=== PATIENT | female | born 1975 | race Caucasian/White ===

== ENCOUNTER 2016-12-20 04:23 | Emergency (ER) | payer OTHER ==
[~2016-12-20] VITALS: Ht 167.6 cm; Wt 84.4 kg
[~2016-12-20 04:23] MED LIST: ECO81 PO; PRI20 PO
[2016-12-20 05:35] LABS: BASOPHIL % 0.6 % (0-2); PLATELET COUNT 268 x10^3mcL (130-400); RED CELL DISTRIBUTION WIDTH 13.7 % (11.5-14.5)
[2016-12-20 05:39] LABS: UA SPECIFIC GRAVITY 1.015 (1.005-1.035); microscopic required? YES; urine erythrocyte 1+ (NEGATIVE)
[2016-12-20 05:49] LABS: CALCIUM 8.9 mg/dL (8.5-10.1); CARBON DIOXIDE 28.7 mmol/L (21-32); CHLORIDE SERUM 102 mmol/L (98-107); CREATININE SERUM 0.5 mg/dL (0.6-1.0); GFR1 > 60 mL/min; GLUCOSE SERUM 91 mg/dL (74-106); POTASSIUM SERUM 3.9 mmol/L (3.5-5.1); SODIUM SERUM 139 mmol/L (136-145)
[2016-12-20 05:54] LABS: ALBUMIN 3.7 g/dL (3.4-5.0); ALKALINE PHOSPHATASE 105 U/L (46-116); ALT/SGPT 18 U/L (14-59); AST/SGOT 17 U/L (15-37); BILIRUBIN TOTAL 0.24 mg/dL (0.20-1.00); LIPASE 133 IU/L (73-393); TOTAL PROTEIN, SERUM 7.2 g/dL (6.4-8.2)
[2016-12-20 10:15] VITALS: BP 100/64
== END 2016-12-20 09:00 | disposition home or self-care (01) ==
LOC: ED 04:23
PROVIDERS: Emergency Medicine
DX: N39.0 Urinary tract infection, site not specified (principal); M19.90 Unspecified osteoarthritis, unspecified site; Z90.710 Acquired absence of both cervix and uterus
CPT/HCPCS: J0696; J2270; J2405; J3010; J3490; J7030; Q9967

== ENCOUNTER 2016-12-28 06:48 | Emergency (ER) | payer OTHER ==
[2016-12-28 07:47] VITALS: BP 112/70
[2016-12-28 08:21] LABS: UA SPECIFIC GRAVITY 1.015 (1.005-1.035); microscopic required? YES; urine erythrocyte 1+ (NEGATIVE)
== END 2016-12-28 07:47 | disposition home or self-care (01) ==
LOC: ED 06:48
PROVIDERS: Emergency Medicine
DX: N39.0 Urinary tract infection, site not specified (principal); Z88.5 Allergy status to narcotic agent
CPT/HCPCS: J0696; Q0162

== ENCOUNTER 2016-12-31 18:24 | Emergency (ER) | payer OTHER ==
[~2016-12-31] VITALS: Ht 167.6 cm; Wt 84.5 kg
[2016-12-31 21:05] LABS: BASOPHIL % 0.5 % (0-2); PLATELET COUNT 290 x10^3mcL (130-400); RED CELL DISTRIBUTION WIDTH 13.7 % (11.5-14.5)
[2016-12-31 21:23] LABS: CALCIUM 8.9 mg/dL (8.5-10.1); CARBON DIOXIDE 23.6 mmol/L (21-32); CHLORIDE SERUM 106 mmol/L (98-107); CREATININE SERUM 0.6 mg/dL (0.6-1.0); GFR1 > 60 mL/min; GLUCOSE SERUM 97 mg/dL (74-106); POTASSIUM SERUM 4.1 mmol/L (3.5-5.1); SODIUM SERUM 140 mmol/L (136-145)
[2016-12-31 21:27] LABS: ALBUMIN 3.7 g/dL (3.4-5.0); ALKALINE PHOSPHATASE 94 U/L (46-116); ALT/SGPT 23 U/L (14-59); AMYLASE 46 U/L (25-115); AST/SGOT 22 U/L (15-37); BILIRUBIN TOTAL 0.19 mg/dL (0.20-1.00); LIPASE 142 IU/L (73-393); TOTAL PROTEIN, SERUM 7.2 g/dL (6.4-8.2)
[2016-12-31 21:30] LABS: microscopic required? YES; urine erythrocyte TRACE (NEGATIVE)
[2016-12-31 21:58] VITALS: BP 107/61
== END 2016-12-31 22:38 | disposition home or self-care (01) ==
LOC: ED 18:24
PROVIDERS: Emergency Medicine
DX: R10.9 Unspecified abdominal pain (principal); B37.3 Candidiasis of vulva and vagina; M19.90 Unspecified osteoarthritis, unspecified site; Z90.710 Acquired absence of both cervix and uterus
CPT/HCPCS: 36415; J1170; Q0162

== ENCOUNTER 2017-01-08 00:55 | Emergency (ER) | payer OTHER ==
[2017-01-08 01:38] LABS: BASOPHIL % 0.7 % (0-2); PLATELET COUNT 243 x10^3mcL (130-400); RED CELL DISTRIBUTION WIDTH 13.4 % (11.5-14.5)
[2017-01-08 01:44] LABS: CALCIUM 8.7 mg/dL (8.5-10.1); CARBON DIOXIDE 24.8 mmol/L (21-32); CHLORIDE SERUM 105 mmol/L (98-107); CREATININE SERUM 0.6 mg/dL (0.6-1.0); GFR1 > 60 mL/min; GLUCOSE SERUM 95 mg/dL (74-106); POTASSIUM SERUM 3.8 mmol/L (3.5-5.1); SODIUM SERUM 141 mmol/L (136-145)
[2017-01-08 01:48] LABS: ALBUMIN 3.7 g/dL (3.4-5.0); ALKALINE PHOSPHATASE 94 U/L (46-116); ALT/SGPT 18 U/L (14-59); AST/SGOT 16 U/L (15-37); BILIRUBIN TOTAL 0.32 mg/dL (0.20-1.00); CHOLESTEROL 146 mg/dL (<200); HDL CHOLESTEROL 41 mg/dL (40-60); PHOSPHOROUS 3.8 mg/dL (2.5-4.9); TOTAL PROTEIN, SERUM 7.3 g/dL (6.4-8.2); URIC ACID 4.3 mg/dL (2.6-6.0)
[2017-01-08 02:54] VITALS: BP 106/87
== END 2017-01-08 02:54 | disposition home or self-care (01) ==
LOC: ED 00:55
PROVIDERS: Emergency Medicine
DX: R07.89 Other chest pain (principal); M54.12 Radiculopathy, cervical region
CPT/HCPCS: 36415; 83880; J1885

== ENCOUNTER 2017-01-16 20:23 | Emergency (ER) | payer OTHER ==
[2017-01-16 21:10] VITALS: BP 113/72
== END 2017-01-16 21:10 | disposition home or self-care (01) ==
LOC: ED 20:23
DX: L03.316 Cellulitis of umbilicus (principal); M19.90 Unspecified osteoarthritis, unspecified site

== ENCOUNTER 2017-01-27 08:16 | Emergency (ER) | payer OTHER ==
[~2017-01-27] VITALS: Ht 165.1 cm; Wt 85.9 kg
[2017-01-27 09:59] VITALS: BP 113/54
== END 2017-01-27 09:59 | disposition home or self-care (01) ==
LOC: ED 08:16
DX: S31.105A Unspecified open wound of abdominal wall, periumbilic region without penetration into peritoneal cavity, initial encounter (principal); X58.XXXA Exposure to other specified factors, initial encounter; Y93.89 Activity, other specified; Y92.89 Other specified places as the place of occurrence of the external cause; Y99.8 Other external cause status

== ENCOUNTER 2017-02-03 03:35 | Emergency (ER) | payer OTHER ==
[2017-02-03 05:01] LABS: UA SPECIFIC GRAVITY <=1.005 (1.005-1.035); microscopic required? YES; urine erythrocyte NEGATIVE (NEGATIVE)
[2017-02-03 06:03] VITALS: BP 115/69
== END 2017-02-03 06:03 | disposition home or self-care (01) ==
LOC: ED 03:35
PROVIDERS: Emergency Medicine
DX: N39.0 Urinary tract infection, site not specified (principal)

== ENCOUNTER 2017-02-06 17:38 | Emergency (ER) | payer OTHER ==
[2017-02-06 20:11] VITALS: BP 11/74
== END 2017-02-06 22:11 | disposition home or self-care (01) ==
LOC: ED 17:38
DX: N12 Tubulo-interstitial nephritis, not specified as acute or chronic (principal)

== ENCOUNTER 2017-02-23 07:56 | Emergency (ER) | payer OTHER ==
[~2017-02-23] VITALS: Ht 165.1 cm; Wt 85.5 kg
[2017-02-23 08:03] VITALS: BP 121/77
[2017-02-23 08:56] LABS: microscopic required? NO
[2017-02-23 09:08] LABS: UA SPECIFIC GRAVITY <=1.005 (1.005-1.035); urine erythrocyte NEGATIVE (NEGATIVE)
== END 2017-02-23 08:55 | disposition home or self-care (01) ==
LOC: ED 07:56
PROVIDERS: Specialist
DX: R30.0 Dysuria (principal); M06.9 Rheumatoid arthritis, unspecified; R35.0 Frequency of micturition

== ENCOUNTER 2017-03-30 07:06 | Emergency (ER) | payer OTHER ==
[2017-03-30 08:58] LABS: microscopic required? NO
[2017-03-30 09:13] LABS: urine erythrocyte NEGATIVE (NEGATIVE)
[2017-03-30 10:09] VITALS: BP 131/71
== END 2017-03-30 10:09 | disposition home or self-care (01) ==
LOC: ED 07:06
PROVIDERS: Emergency Medicine
DX: G43.909 Migraine, unspecified, not intractable, without status migrainosus (principal); R10.9 Unspecified abdominal pain; H52.10 Myopia, unspecified eye; M25.512 Pain in left shoulder
CPT/HCPCS: J1200; J2765

== ENCOUNTER 2017-05-20 02:35 | Emergency (ER) | payer OTHER ==
[2017-05-20 04:02] LABS: BASOPHIL % 0.6 % (0-2); PLATELET COUNT 231 x10^3mcL (130-400); RED CELL DISTRIBUTION WIDTH 14.2 % (11.5-14.5)
[2017-05-20 04:15] LABS: CALCIUM 8.6 mg/dL (8.5-10.1); CARBON DIOXIDE 28.6 mmol/L (21-32); CHLORIDE SERUM 105 mmol/L (98-107); CREATININE SERUM 0.6 mg/dL (0.6-1.0); GFR1 > 60 mL/min; GLUCOSE SERUM 101 mg/dL (74-106); POTASSIUM SERUM 3.5 mmol/L (3.5-5.1); SODIUM SERUM 139 mmol/L (136-145)
[2017-05-20 04:25] LABS: ALBUMIN 3.8 g/dL (3.4-5.0); ALKALINE PHOSPHATASE 98 U/L (46-116); ALT/SGPT 16 U/L (14-59); AST/SGOT 17 U/L (15-37); BILIRUBIN TOTAL 0.4 mg/dL (0.20-1.00); LIPASE 116 IU/L (73-393); TOTAL PROTEIN, SERUM 7.7 g/dL (6.4-8.2)
[2017-05-20 06:12] VITALS: BP 104/75
== END 2017-05-20 06:12 | disposition home or self-care (01) ==
LOC: ED 02:35
PROVIDERS: Emergency Medicine
DX: K59.00 Constipation, unspecified (principal); R35.0 Frequency of micturition; M19.90 Unspecified osteoarthritis, unspecified site; Z90.49 Acquired absence of other specified parts of digestive tract
CPT/HCPCS: 36415; J1885

== ENCOUNTER 2018-03-29 05:52 | Emergency (ER) | payer OTHER ==
[~2018-03-29] VITALS: Ht 167.6 cm; Wt 85.3 kg
[2018-03-29 06:10] VITALS: BP 122/81; Ht 167.6 cm; Wt 85.3 kg
== END 2018-03-29 06:58 | disposition home or self-care (01) ==
LOC: ED 05:52
DX: H65.92 Unspecified nonsuppurative otitis media, left ear (principal); M19.90 Unspecified osteoarthritis, unspecified site; Z90.49 Acquired absence of other specified parts of digestive tract; Z90.710 Acquired absence of both cervix and uterus; Z88.5 Allergy status to narcotic agent

== ENCOUNTER 2018-12-03 08:57 | Emergency (ER) | payer OTHER ==
[~2018-12-03] VITALS: Ht 167.6 cm; Wt 85.9 kg
[2018-12-03 09:01] VITALS: Ht 167.6 cm; Wt 85.9 kg
[2018-12-03 09:44] LABS: microscopic required? NO
[2018-12-03 10:26] LABS: BASOPHIL % 0.6 % (0-2); PLATELET COUNT 224 x10^3mcL (130-400); RED CELL DISTRIBUTION WIDTH 13.1 % (11.5-14.5)
[2018-12-03 10:28] LABS: CALCIUM 8.8 mg/dL (8.5-10.1); CARBON DIOXIDE 26.6 mmol/L (21-32); CHLORIDE SERUM 102 mmol/L (98-107); CREATININE SERUM 0.6 mg/dL (0.6-1.0); GFR1 > 60 mL/min; GLUCOSE SERUM 92 mg/dL (74-106); SODIUM SERUM 138 mmol/L (136-145)
[2018-12-03 10:29] LABS: UA SPECIFIC GRAVITY <=1.005 (1.005-1.035); urine erythrocyte NEGATIVE (NEGATIVE)
[2018-12-03 10:32] LABS: ALBUMIN 4.1 g/dL (3.4-5.0); ALKALINE PHOSPHATASE 94 U/L (46-116); ALT/SGPT 29 U/L (14-59); AST/SGOT 33 U/L (15-37); BILIRUBIN TOTAL 0.3 mg/dL (0.20-1.00); TOTAL PROTEIN, SERUM 7.8 g/dL (6.4-8.2)
[2018-12-03 12:01] VITALS: BP 114/73
== END 2018-12-03 12:01 | disposition home or self-care (01) ==
LOC: ED 08:57
PROVIDERS: Emergency Medicine
DX: R42 Dizziness and giddiness (principal); T37.8X5A Adverse effect of other specified systemic anti-infectives and antiparasitics, initial encounter; M19.90 Unspecified osteoarthritis, unspecified site; Z90.49 Acquired absence of other specified parts of digestive tract; Z90.710 Acquired absence of both cervix and uterus; Z88.5 Allergy status to narcotic agent; Y92.89 Other specified places as the place of occurrence of the external cause
CPT/HCPCS: 36415; J8597

== ENCOUNTER 2019-05-11 11:42 | Emergency (ER) | payer OTHER ==
[~2019-05-11] VITALS: Ht 167.6 cm; Wt 85.3 kg
[2019-05-11 11:54] VITALS: Ht 167.6 cm; Wt 85.3 kg
[2019-05-11 12:20] LABS: CALCIUM 8.7 mg/dL (8.5-10.1); CARBON DIOXIDE 31.4 mmol/L (21-32); CHLORIDE SERUM 102 mmol/L (98-107); CREATININE SERUM 0.6 mg/dL (0.6-1.0); GFR1 > 60 mL/min; GLUCOSE SERUM 104 mg/dL (74-106); POTASSIUM SERUM 3.6 mmol/L (3.5-5.1); SODIUM SERUM 141 mmol/L (136-145)
[2019-05-11 12:24] LABS: BASOPHIL % 0.6 % (0-2); PLATELET COUNT 229 x10^3mcL (130-400); RED CELL DISTRIBUTION WIDTH 13.2 % (11.5-14.5)
[2019-05-11 12:25] LABS: ALKALINE PHOSPHATASE 90 U/L (46-116); ALT/SGPT 14 U/L (14-59); AST/SGOT 14 U/L (15-37); BILIRUBIN TOTAL 0.31 mg/dL (0.20-1.00); TOTAL PROTEIN, SERUM 7.5 g/dL (6.4-8.2)
[2019-05-11 15:59] LABS: microscopic required? NO
[2019-05-11 16:05] LABS: UA SPECIFIC GRAVITY <=1.005 (1.005-1.035); urine erythrocyte NEGATIVE (NEGATIVE)
[2019-05-11 18:58] VITALS: BP 111/70
== END 2019-05-11 18:58 | disposition home or self-care (01) ==
LOC: ED 11:42
PROVIDERS: Emergency Medicine
DX: R10.9 Unspecified abdominal pain (principal); Z90.89 Acquired absence of other organs; Z90.49 Acquired absence of other specified parts of digestive tract; Z90.710 Acquired absence of both cervix and uterus; Z88.5 Allergy status to narcotic agent; Z98.890 Other specified postprocedural states
CPT/HCPCS: J1885

== ENCOUNTER 2019-08-29 09:45 | Emergency (ER) | payer OTHER ==
[~2019-08-29] VITALS: Ht 167.6 cm; Wt 75.7 kg
[2019-08-29 10:00] VITALS: Ht 167.6 cm; Wt 75.7 kg
[2019-08-29 11:22] VITALS: BP 115/71
== END 2019-08-29 11:22 | disposition home or self-care (01) ==
LOC: ED 09:45
DX: S39.012A Strain of muscle, fascia and tendon of lower back, initial encounter (principal); Z88.5 Allergy status to narcotic agent; X58.XXXA Exposure to other specified factors, initial encounter; Y93.89 Activity, other specified; Y92.89 Other specified places as the place of occurrence of the external cause; Y99.8 Other external cause status
CPT/HCPCS: J1885

== ENCOUNTER 2019-09-26 14:00 | Emergency (ER) | payer OTHER ==
[~2019-09-26] VITALS: Ht 167.6 cm; Wt 86.2 kg
[2019-09-26 14:11] VITALS: Ht 167.6 cm; Wt 86.2 kg
[2019-09-26 15:48] LABS: BASOPHIL % 0.5 % (0-2); PLATELET COUNT 233 x10^3mcL (130-400); RED CELL DISTRIBUTION WIDTH 13.1 % (11.5-14.5)
[2019-09-26 16:11] LABS: UA SPECIFIC GRAVITY <=1.005 (1.005-1.035); microscopic required? YES; urine erythrocyte TRACE (NEGATIVE)
[2019-09-26 16:13] LABS: CALCIUM 8.9 mg/dL (8.5-10.1); CARBON DIOXIDE 30.2 mmol/L (21-32); CHLORIDE SERUM 105 mmol/L (98-107); CREATININE SERUM 0.6 mg/dL (0.6-1.0); GFR1 > 60 mL/min; GLUCOSE SERUM 94 mg/dL (74-106); POTASSIUM SERUM 3.7 mmol/L (3.5-5.1); SODIUM SERUM 141 mmol/L (136-145)
[2019-09-26 16:18] LABS: ALBUMIN 3.7 g/dL (3.4-5.0); ALKALINE PHOSPHATASE 89 U/L (46-116); ALT/SGPT 17 U/L (14-59); AST/SGOT 15 U/L (15-37); LIPASE 124 IU/L (73-393); TOTAL PROTEIN, SERUM 7.3 g/dL (6.4-8.2)
[2019-09-26 18:32] VITALS: BP 105/68
== END 2019-09-26 18:32 | disposition home or self-care (01) ==
LOC: ED 14:00
PROVIDERS: Emergency Medicine
DX: K57.90 Diverticulosis of intestine, part unspecified, without perforation or abscess without bleeding (principal); M19.90 Unspecified osteoarthritis, unspecified site; Z88.5 Allergy status to narcotic agent; Z90.49 Acquired absence of other specified parts of digestive tract; Z98.890 Other specified postprocedural states
CPT/HCPCS: 36415; J1885